=== PATIENT | female | born 1935 | race Caucasian/White ===

== ENCOUNTER 2016-06-23 11:50 | Day surgery (SDC) | payer MEDICARE, BC ==
[2016-06-23] VITALS (7 sets, daily range): BP systolic 54–115; BP diastolic 33–67; PULSE 69–83; TEMP 97.5–97.8
[~2016-06-23] VITALS: Ht 162.6 cm; Wt 63.6 kg
[~2016-06-23 11:50] MED LIST: AMITRIPTYLINE H25 M1 PO; AMITRIPTYLINE H75 M1 PO; BACLOFEN20 MG PO; CALCIUM600 MG PO; CALTRATE-600 W600 MG PO; FLONASE NASAL S16 GM NS; LEVAQUIN 5500 MG/TA1 PO; LIORESAL20 MG PO; MACRODANTIN25 MG PO; MACRODANTIN50 MG PO; MACRODANTIN50 MG/CA1 PO; MULTIPLE VITAMI1 CAP PO; NORCO 325 MG-51 TAB PO; OCUVITE; PREDNISONE20 MG PO; PREMARIN 0.60.625 M1 PO; PREMARIN 0.60.625 MG PO; SINGULAIR; SINGULAIR 110 MG/TAB PO; TUMS500 MG; VITAMIN D1000 IU PO; ZITHROMAX500 M2 PO; ZYRTEC 10MG; ZYRTEC 10MG10 MG PO
== END 2016-06-23 14:15 | disposition home or self-care (01) ==
LOC: SDCO 11:50
DX: R06.02 Shortness of breath (principal); R05 Cough; R09.89 Other specified symptoms and signs involving the circulatory and respiratory systems; G82.50 Quadriplegia, unspecified; Z87.440 Personal history of urinary (tract) infections
CPT/HCPCS: J7030

== ENCOUNTER 2016-06-28 12:28 | Day surgery (SDC) | payer MEDICARE, OTHER ==
[~2016-06-28] VITALS: Ht 162.6 cm; Wt 63.6 kg
[2016-06-28 13:07] VITALS: BP 110/72; PULSE 86; TEMP 97.8
[2016-06-28 14:15] VITALS: BP 165/77; PULSE 86; TEMP 97.6
[2016-06-28 14:30] VITALS: BP 45/72; PULSE 89
[2016-06-28 14:45] VITALS: BP 159/73; PULSE 84
[2016-06-28 15:15] VITALS: BP 167/93; PULSE 85
[2016-06-29] MEDS ORDERED: POTASSIUM IODID PO (09:50)
== END 2016-06-28 15:05 | disposition home or self-care (01) ==
LOC: SDCO 12:28
DX: R05 Cough (principal); G82.50 Quadriplegia, unspecified; Z87.440 Personal history of urinary (tract) infections
CPT/HCPCS: J2704

== ENCOUNTER 2016-06-29 06:59 | Day surgery (SDC) | payer MEDICARE, OTHER ==
[~2016-06-29] VITALS: Ht 162.6 cm; Wt 63.6 kg
[2016-06-29 07:39] VITALS: BP 157/86; PULSE 84; TEMP 97.3
[2016-06-29 08:20] VITALS: BP 121/72; PULSE 86; TEMP 98
[2016-06-29 08:35] VITALS: BP 132/70; PULSE 83
[2016-06-29 08:50] VITALS: BP 122/89; PULSE 92
[2016-06-29 09:30] VITALS: BP 138/71; PULSE 77
[2016-06-29] MEDS ORDERED: POTASSIUM IODID PO (09:50)
== END 2016-06-29 10:10 | disposition home or self-care (01) ==
LOC: SDCO 06:59
DX: R05 Cough (principal); R09.89 Other specified symptoms and signs involving the circulatory and respiratory systems; G82.50 Quadriplegia, unspecified; Z87.440 Personal history of urinary (tract) infections
CPT/HCPCS: J2704; J2920; J7030

== ENCOUNTER 2016-07-01 15:35 | Day surgery (SDC) | payer MEDICARE, BC ==
[~2016-07-01 15:35] MED LIST changes: +POTASSIUM IODID PO
[2016-07-01 16:15] VITALS: BP 142/58; PULSE 86
[2016-07-01 17:30] VITALS: BP 106/49; PULSE 64
[2016-07-01 18:00] VITALS: BP 132/73; PULSE 56; TEMP 97.4
== END 2016-07-01 18:40 | disposition home or self-care (01) ==
LOC: SDCO 15:35
DX: R06.02 Shortness of breath (principal); R05 Cough; J40 Bronchitis, not specified as acute or chronic; J98.11 Atelectasis; G82.50 Quadriplegia, unspecified
CPT/HCPCS: J2704; J7120

== ENCOUNTER 2016-07-03 09:51 | Day surgery (SDC) | payer MEDICARE, BC ==
[~2016-07-03] VITALS: Ht 162.6 cm; Wt 63.6 kg
[2016-07-03 12:08] VITALS: BP 126/67; PULSE 70; TEMP 97.4
[2016-07-03 12:30] VITALS: BP 98/57; PULSE 62
[2016-07-03 12:45] VITALS: BP 121/62; PULSE 70
[2016-07-03 13:00] VITALS: BP 118/66; PULSE 67
[2016-07-03 13:14] VITALS: BP 116/66; PULSE 58
== END 2016-07-03 13:20 | disposition home or self-care (01) ==
LOC: SDCO 09:51
DX: R06.02 Shortness of breath (principal); R05 Cough; R06.00 Dyspnea, unspecified; G82.50 Quadriplegia, unspecified
CPT/HCPCS: J2704; J7120

== ENCOUNTER 2016-08-30 13:46 | Outpatient (RCR) | payer MEDICARE, BC | END 2016-11-28 | disposition still patient (30) | LOC: WSOT | DX: Z02.89 Encounter for other administrative examinations (principal) ==

== ENCOUNTER → 2018-05-30 | Outpatient (CLI) | payer MEDICARE, BC | LOC: ZCOL.LAB 16:51 | DX: Z01.89 Encounter for other specified special examinations (principal) ==

== ENCOUNTER 2018-07-16 10:53 | Emergency (ER) | payer MEDICARE, BC ==
[2018-07-16 11:07] VITALS: TEMP 98.6
[2018-07-16 11:47] LABS: COLLECTION METHOD CATHETER
[2018-07-16 11:49] LABS: BASO # 0.1 (0.0-0.2); BASO % 0.5 % (0.0-2.0); EOS # 0.1 (0.0-0.7); GRAN # 7.2 (1.4-6.5); GRAN % 73.6 % (42.2-75.2); HEMATOCRIT 37.5 % (37.0-47.0); HEMOGLOBIN 12.1 g/dl (12.5-16.0); LYMPH # 1.7 (1.2-3.4); LYMPH % 17.5 % (20.0-51.0); MEAN CELL VOLUME 84 fl (80.0-100.0); MEAN CORPUSCULAR HEMOGLOBIN 27 pg (27.0-31.0); MEAN CORPUSCULAR HGB CONC 32 g/dl (33.0-37.0); MEAN PLATELET VOLUME 10.5 fl (7.4-10.4); MONO # 0.7 (0.1-0.6); MONO % 7.2 % (1.7-9.3); PLATELET COUNT 188 K/mm3 (130-400); RED BLOOD COUNT 4.49 M/mm3 (4.10-5.30); REDCELL DISTRIBUTION WIDTH-CV 16.4 % (11.5-14.5)
[2018-07-16 12:00] LABS: ALANINE AMINOTRANSFERASE 10 U/L (9-52); ALBUMIN 3.6 gm/dL (3.5-5.0); ALKALINE PHOSPHATASE 113 U/L (50-136); ANION GAP 8 mmol/L (7-16); AST,SGOT 21 U/L (15-37); BILIRUBIN,TOTAL 0.4 mg/dL (0.0-1.0); BLOOD UREA NITROGEN 21 mg/dL (7-17); CALCIUM 8.7 mg/dL (8.4-10.2); CARBON DIOXIDE 23 mmol/L (22-30); CHLORIDE 107 mmol/L (98-107); CREATININE, serum 0.57 mg/dL (0.52-1.25); GLUCOSE 150 mg/dL (74-106); POTASSIUM 3.9 mmol/L (3.4-5.0); SODIUM 138 mmol/L (137-145); TOTAL PROTEIN 7.6 gm/dL (6.4-8.2)
[2018-07-16 12:00] LABS: MUCOUS Present /lpf; PH 7 (5-8); SQUAMOUS EPITHELIAL 0-2 /hpf; URINE APPEARANCE Hazy; URINE BACTERIA Rare /hpf; URINE BILIRUBIN Negative (NEGATIVE); URINE BLOOD 1+ (NEGATIVE); URINE COLOR Yellow; URINE GLUCOSE Negative (NEGATIVE); URINE KETONE 1+ (NEGATIVE); URINE LEUKOCYTE ESTERASE 2+ (NEGATIVE); URINE NITRATE Positive (NEGATIVE); URINE PROTEIN(semi-quant) Negative (NEGATIVE); URINE UROBILINOGEN Negative (NEGATIVE)
[2018-07-16 12:03] LABS: ACETAMINOPHEN < 10 ug/mL (10-30); ALCOHOL(ethanol),MEDICAL < 10 mg/dL; SALICYLATE < 1.0 mg/dL
[2018-07-16 12:05] LABS: TRICYCLIC ANTIDEPRESS URINE POSITIVE
[2018-07-16] MEDS ORDERED: OMNICEF 300MG300 MG PO (12:24)
[2018-07-16 13:55] VITALS: BP 99/70; PULSE 84
== END 2018-07-16 14:00 | disposition home or self-care (01) ==
LOC: COL.ER 10:53
PROVIDERS: Emergency Medicine
DX: N39.0 Urinary tract infection, site not specified (principal); J32.9 Chronic sinusitis, unspecified; H70.90 Unspecified mastoiditis, unspecified ear; Z90.710 Acquired absence of both cervix and uterus; Z79.51 Long term (current) use of inhaled steroids
CPT/HCPCS: A4216; J0696; J7030

== ENCOUNTER 2019-05-07 08:35 | Emergency (ER) | payer MEDICARE, BC ==
[~2019-05-07] VITALS: Ht 162.6 cm; Wt 60.0 kg
[~2019-05-07 08:35] MED LIST changes: +OMNICEF 300MG300 MG PO
[2019-05-07 09:47] LABS: COLLECTION METHOD CATHETER
[2019-05-07 10:08] LABS: PH 7 (5-8); SQUAMOUS EPITHELIAL None Seen /hpf; URINE APPEARANCE Cloudy; URINE BACTERIA Many /hpf; URINE BILIRUBIN Negative (NEGATIVE); URINE BLOOD 3+ (NEGATIVE); URINE COLOR Amber; URINE GLUCOSE Negative (NEGATIVE); URINE KETONE Negative (NEGATIVE); URINE LEUKOCYTE ESTERASE 2+ (NEGATIVE); URINE NITRATE Positive (NEGATIVE); URINE PROTEIN(semi-quant) 2+ (NEGATIVE); URINE RBC >50 /hpf; URINE UROBILINOGEN >=4.0 mg/dL (NEGATIVE)
[2019-05-07 10:11] LABS: BASO # 0.1 (0.0-0.2); BASO % 0.7 % (0.0-2.0); EOS # 0.3 (0.0-0.7); EOS % 4.3 % (0-4.0); GRAN # 4.7 (1.4-6.5); GRAN % 64.8 % (42.2-75.2); HEMOGLOBIN 11.4 g/dl (12.5-16.0); LYMPH # 1.5 (1.2-3.4); LYMPH % 20.7 % (20.0-51.0); MEAN CELL VOLUME 80 fl (80.0-100.0); MEAN CORPUSCULAR HEMOGLOBIN 25 pg (27.0-31.0); MEAN CORPUSCULAR HGB CONC 32 g/dl (33.0-37.0); MEAN PLATELET VOLUME 10.8 fl (7.4-10.4); MONO # 0.6 (0.1-0.6); MONO % 8.9 % (1.7-9.3); PLATELET COUNT 179 K/mm3 (130-400); RED BLOOD COUNT 4.48 M/mm3 (4.10-5.30); REDCELL DISTRIBUTION WIDTH-CV 18.5 % (11.5-14.5)
[2019-05-07 10:22] LABS: ALBUMIN 3.7 gm/dL (3.5-5.0); BILIRUBIN,TOTAL 0.5 mg/dL (0.0-1.0); CALCIUM 8.7 mg/dL (8.4-10.2); CREATININE, serum 0.49 (0.52-1.25); POTASSIUM 4.2 mmol/L (3.4-5.0); TOTAL PROTEIN 7.9 gm/dL (6.4-8.2)
[2019-05-07 10:33] LABS: TROPONIN-I 0.017 ng/mL (0.000-0.035)
[2019-05-07] MEDS ORDERED: CEPHALEXIN500 M1 PO (11:08)
[2019-05-07] MEDS ORDERED: OMNICEF 300MG300 MG PO (11:55)
[2019-05-07] MEDS ORDERED: LASIX 20MG TABL20 MG PO (13:18)
[2019-05-07 13:40] VITALS: BP 120/59; PULSE 88; TEMP 98.4
== END 2019-05-07 13:45 | disposition home or self-care (01) ==
LOC: COL.ER 08:35
PROVIDERS: Nurse Practitioner
DX: N39.0 Urinary tract infection, site not specified (principal); Z90.710 Acquired absence of both cervix and uterus; Z79.51 Long term (current) use of inhaled steroids
CPT/HCPCS: A4216; J0696; J7030

== ENCOUNTER 2019-05-14 15:23 | Emergency (ER) | payer MEDICARE, BC ==
[~2019-05-14] VITALS: Ht 162.6 cm; Wt 61.4 kg
[~2019-05-14 15:23] MED LIST changes: +CEPHALEXIN500 M1 PO; +LASIX 20MG TABL20 MG PO
[2019-05-14 15:29] VITALS: TEMP 97
[2019-05-14 16:36] LABS: COLLECTION METHOD CATHETER
[2019-05-14 16:40] LABS: BASO # 0.1 (0.0-0.2); EOS # 0.3 (0.0-0.7); EOS % 4.2 % (0-4.0); GRAN # 3.9 (1.4-6.5); GRAN % 53.6 % (42.2-75.2); HEMATOCRIT 37.2 % (37.0-47.0); HEMOGLOBIN 11.7 g/dl (12.5-16.0); LYMPH # 2.5 (1.2-3.4); LYMPH % 35.1 % (20.0-51.0); MEAN CELL VOLUME 81 fl (80.0-100.0); MEAN CORPUSCULAR HEMOGLOBIN 26 pg (27.0-31.0); MEAN CORPUSCULAR HGB CONC 32 g/dl (33.0-37.0); MEAN PLATELET VOLUME 10.8 fl (7.4-10.4); MONO # 0.4 (0.1-0.6); PLATELET COUNT 254 K/mm3 (130-400); RED BLOOD COUNT 4.57 M/mm3 (4.10-5.30); REDCELL DISTRIBUTION WIDTH-CV 18.5 % (11.5-14.5)
[2019-05-14 16:46] LABS: MUCOUS Present /lpf; PH 6 (5-8); SQUAMOUS EPITHELIAL 0-2 /hpf; URINE APPEARANCE Hazy; URINE BACTERIA Rare /hpf; URINE BILIRUBIN Negative (NEGATIVE); URINE BLOOD Negative (NEGATIVE); URINE COLOR Yellow; URINE GLUCOSE Negative (NEGATIVE); URINE KETONE Negative (NEGATIVE); URINE LEUKOCYTE ESTERASE Trace (NEGATIVE); URINE NITRATE Positive (NEGATIVE); URINE PROTEIN(semi-quant) Negative (NEGATIVE); URINE RBC 0-2 /hpf
[2019-05-14 16:55] LABS: ALBUMIN 3.8 gm/dL (3.5-5.0); BILIRUBIN,TOTAL 0.4 mg/dL (0.0-1.0); C-REACTIVE PROTEIN 2.1 mg/dL (0.0-0.9); CALCIUM 9.1 mg/dL (8.4-10.2); CREATININE, serum 0.62 (0.52-1.25); POTASSIUM 4.3 mmol/L (3.4-5.0)
[2019-05-14 17:50] VITALS: BP 128/74; PULSE 67
== END 2019-05-14 18:10 | disposition home or self-care (01) ==
LOC: COL.ER 15:23
PROVIDERS: Family Medicine
DX: N39.0 Urinary tract infection, site not specified (principal); Z79.51 Long term (current) use of inhaled steroids
CPT/HCPCS: J7030

== ENCOUNTER 2020-03-02 13:36 | Inpatient (IN) | payer MEDICARE, BC ==
[~2020-03-02] VITALS: Ht 162.6 cm; Wt 56.8 kg
[2020-03-02 14:50] LABS: COLLECTION METHOD CATHETER
[2020-03-02 14:56] LABS: HEMOGLOBIN 11.2 g/dl (12.5-16.0); MEAN CELL VOLUME 86 fl (80.0-100.0); MEAN CORPUSCULAR HEMOGLOBIN 27 pg (27.0-31.0); MEAN CORPUSCULAR HGB CONC 32 g/dl (33.0-37.0); PLATELET COUNT 152 K/mm3 (130-400); REDCELL DISTRIBUTION WIDTH-CV 16.5 % (11.5-14.5)
[2020-03-02 15:00] LABS: HEMATOCRIT 35.1 % (37.0-47.0)
[2020-03-02 15:07] LABS: MUCOUS Present /lpf; PH 8 (5-8); URINE APPEARANCE Turbid; URINE BACTERIA None Seen /hpf; URINE BILIRUBIN Negative (NEGATIVE); URINE BLOOD Negative (NEGATIVE); URINE COLOR Amber; URINE GLUCOSE Negative (NEGATIVE); URINE KETONE Negative (NEGATIVE); URINE LEUKOCYTE ESTERASE 2+ (NEGATIVE); URINE NITRATE Negative (NEGATIVE); URINE PROTEIN(semi-quant) 2+ (NEGATIVE); URINE UROBILINOGEN Negative (NEGATIVE)
[2020-03-02 15:08] LABS: ALANINE AMINOTRANSFERASE 32 U/L (4-34); ALBUMIN 3.7 gm/dL (3.5-5.0); ALKALINE PHOSPHATASE 257 U/L (50-136); ANION GAP 10 mmol/L (7-16); AST,SGOT 69 U/L (15-37); BILIRUBIN,TOTAL 1.2 mg/dL (0.0-1.0); BLOOD UREA NITROGEN 31 mg/dL (7-17); CALCIUM 8.9 mg/dL (8.4-10.2); CARBON DIOXIDE 23 mmol/L (22-30); CHLORIDE 102 mmol/L (98-107); GLUCOSE 160 mg/dL (74-106); MAGNESIUM 1.8 mg/dL (1.6-2.3); POTASSIUM 4.1 mmol/L (3.4-5.0); SODIUM 134 mmol/L (137-145); TOTAL PROTEIN 7.9 gm/dL (6.4-8.2)
[2020-03-02 15:20] LABS: C-REACTIVE PROTEIN 20.5 mg/dL (0.0-0.9); TROPONIN-I < 0.012 ng/mL (0.000-0.035)
[2020-03-02 15:35] LABS: ANISOCYTOSIS 1+; BAND 31 % (0-10); LYMPHOCYTE 2 % (20.0-51.0); MICROCYTOSIS 1+; NEUTROPHILS 66 % (42.0-75.2); PLATELET ESTIMATE NORMAL (NORMAL); TOXIC GRANULATION PRESENT
[2020-03-02 16:41] LABS: ERYTHROCYTE SEDIMENTATION RATE 92 mm/hr (0-30)
[2020-03-02 19:43] VITALS: BP 142/69; PULSE 80; TEMP 98.6
--- NOTE | 2020-03-02 20:00 | NUR ---
At time of assessment, patient is alert and oriented. 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 She is unable to feed herself and is assisted with dinner at this time. All extremities are puffy. Lung sounds are clear over fine crackles, HR normal/regular. Assessment B and med rec complete at this time. Patient states she has stopped taking all prescription medications and only takes OTC vitamin D, magnesium and Flonase. A stage 3 pressure ulcer is observed on patients sacruum; Old dressing from home is removed and a new wet-to-dry dressing is applied after wound is cleansed with NS. Two scabbed over ulcers, one on each great toe, are noted, in addition to a stage 2 pressure ulcer on the patient's left heel. Patient has indwelling suprapubic ash in; leg bag from home is emptied and replaced with a larger draining reservoir from hospital. Urine is malodorous and dark yellow. Patient is afebrile. Will continue to monitor.
[2020-03-02] MEDS ORDERED: MAGNESIUM ELEME30 MG (22:09)
[2020-03-02 23:32] VITALS: BP 97/50; PULSE 72; TEMP 98.1
[2020-03-03] VITALS (7 sets, daily range): BP systolic 75–158; BP diastolic 39–68; PULSE 70–93; TEMP 97.3–98.2
[2020-03-03 09:02] LABS: HEMATOCRIT 30.5 % (37.0-47.0); HEMOGLOBIN 9.6 g/dl (12.5-16.0); MEAN CELL VOLUME 87 fl (80.0-100.0); MEAN CORPUSCULAR HEMOGLOBIN 27 pg (27.0-31.0); MEAN CORPUSCULAR HGB CONC 32 g/dl (33.0-37.0); MEAN PLATELET VOLUME 12.1 fl (7.4-10.4); PLATELET COUNT 130 K/mm3 (130-400); RED BLOOD COUNT 3.51 M/mm3 (4.10-5.30); REDCELL DISTRIBUTION WIDTH-CV 16.9 % (11.5-14.5)
[2020-03-03 09:26] LABS: CALCIUM 7.5 mg/dL (8.4-10.2); CREATININE, serum 0.59 (0.52-1.25); MAGNESIUM 1.7 mg/dL (1.6-2.3); POTASSIUM 3.6 mmol/L (3.4-5.0)
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
--- NOTE | 2020-03-03 10:51 | NUR ---
PATIENT SHIFT ASSESSMENT COMPLETED AT THIS TIME. BED BATH GIVEN WITH THE ASSISTANCE OF THE SOFTWARE IMPLEMENTATION PROJECT MANAGER. SUPRAPUBIC CATHETER DRAINING TO A LI BAG. PATIENT REPOSITIONED IN BED WITH PILLOWS AND TOUCH PAD CALL LIGHT. PRESENT BRIEFLY IN THE ROOM THIS MORNING. PATIENT DENIES ANY OTHER NEEDS AT THIS TIME.
[2020-03-03 11:02] LABS: BAND 35 % (0-10); EOSINOPHIL 2 % (0-4); LYMPHOCYTE 11 % (20.0-51.0); NEUTROPHILS 51 % (42.0-75.2); PLATELET ESTIMATE NORMAL (NORMAL)
--- NOTE | 2020-03-03 14:31 | NUR ---
CHARLOTTE NAJERA CALLED AND NOTIFIED OF POSITIVE BLOOD CULTURE RESULTS. NO ORDERS AT THIS TIME.
--- NOTE | 2020-03-03 17:00 | NUR ---
COCCYX DRESSING CHANGE DISCUSSED WITH CHARLOTTE NAJERA AND CHARGE NURSE MARIA D GARCIA. PATIENT AND HAD REFUSED WOUND CARE CONSULTATION WITH THE HOSPITAL HERE AND WOULD LIKE TO CONTINUE WITH THEIR WOUND CARE ROUTINE PER [facility]. THIS NURSE ATTEMPTED TO CONTACT THE IN REGARDS TO THEIR HOME WOUND CARE ROUTINE. ALL CONTACT PHONE NUMBERS IN THE PATIENTS CHART HAVE BEEN DISCONNECTED AND THIS NURSE WAS UNABLE TO GET AHOLD OF THE THIS AFTERNOON. WET TO DRY DRESSING TO THE COCCYX CURRENTLY IN PLACE. WILL HAVE NURSING STAFF REPLACE IF DRAINAGE NOTED. OTHERWISE WILL GET WOUND CARE ORDERS TOMORROW AND RESUME DRESSING CHANGES PER THEIR ORDERS TOMORROW. THIS NURSE DISCUSSED WITH PATIENT. PATIENT IS OKAY WITH THIS PLAN. PATIENT REPOSITIONED IN BED. SUPRAPUBIC LI CATHETER DRAINING CLEAR YELLOW URINE TO LI BAG. TOUCH PAD CALL LIGHT WITHIN REACH.
--- NOTE | 2020-03-03 20:00 | NUR ---
Report received, assumed care for security shift manager. Assessment complete. A&Ox3-drowsy. Denies pain/nausea/shortness of breath. VS remain stable. Suprapubic cath draining yellow cloudy malodorous urine. NS@75mls/hr to right hand IV. Stage III pressure ulcer to coccyx-dressing intact. Left heel scabbed healing pressure ulcer-heel protectors on-elevated on pillows. Bilat great toe scabbed healing pressure ulcer. Plan of care discussed for this shift to include q2h turn schedule/meds/calling for needs. Verbalizes understanding/denies questions/concerns. Call light in reach. Will monitor.
--- NOTE | 2020-03-04 04:07 | NUR ---
Called slightly confused asking for this nurse to call doctor to get medications ordered in "shot form." Discussed no meds were due at this time. States she cant swallow her pills even when they are crushed in apple sauce. Will pass on to day shift nurse to be addressed.
[2020-03-04 04:31] VITALS: BP 159/74; PULSE 92; TEMP 97.5
--- NOTE | 2020-03-04 07:30 | NUR ---
Patient resting in bedside recliner eating breakfast at this time. Patient is alert and oriented, answers questions appropriately. Patient states he is feeling well this morning, is breathing easier. Patient reports that his CPAP tubing has a tear in it and he had to use a hospital machine last night, which he found very uncomfortable and had trouble sleeping. Called patient's about CPAP tubing and she states she will try to get replacement tubing for it before she comes to visit today. Patient denies further needs, call light within reach.
[2020-03-04 08:46] LABS: BASO # 0.1 (0.0-0.2); BASO % 0.4 % (0.0-2.0); EOS # 0.5 (0.0-0.7); EOS % 3.6 % (0-4.0); GRAN # 10.9 (1.4-6.5); GRAN % 81.9 % (42.2-75.2); LYMPH # 1.2 (1.2-3.4); LYMPH % 9.3 % (20.0-51.0); MEAN CELL VOLUME 86 fl (80.0-100.0); MEAN CORPUSCULAR HGB CONC 32 g/dl (33.0-37.0); MEAN PLATELET VOLUME 12.4 fl (7.4-10.4); MONO # 0.5 (0.1-0.6); PLATELET COUNT 125 K/mm3 (130-400); RED BLOOD COUNT 3.29 M/mm3 (4.10-5.30)
[2020-03-04 08:47] VITALS: BP 118/65; PULSE 96; TEMP 98.2
[2020-03-04 08:48] LABS: HEMATOCRIT 28.4 % (37.0-47.0); HEMOGLOBIN 9.2 g/dl (12.5-16.0); MEAN CORPUSCULAR HEMOGLOBIN 28 pg (27.0-31.0)
[2020-03-04 08:51] LABS: ALBUMIN 2.7 gm/dL (3.5-5.0); BILIRUBIN,TOTAL 0.4 mg/dL (0.0-1.0); CALCIUM 7.5 mg/dL (8.4-10.2); CREATININE, serum 0.58 (0.52-1.25); POTASSIUM 3.3 mmol/L (3.4-5.0); TOTAL PROTEIN 6.3 gm/dL (6.4-8.2)
--- NOTE | 2020-03-04 09:53 | NUR ---
Patient resting in bed at this time. Patient is alert and oriented, answers questions appropriately. Patient reports that she is feeling well today, denies pain or compaints. Discussed with patient the need to get a different phone number for [facility] wound care so we can get instructions for her dressing changes. She states that they can be hard to get in touch with, but her may have a different phone number, she states that if you leave a message they ususally call back. Ensured patient had soft touch call light in good position so it could be used if she needs anything. Patient denies current needs.
[2020-03-04 12:14] VITALS: BP 150/87; PULSE 93; TEMP 98.4
[2020-03-04 16:50] VITALS: BP 135/93; PULSE 80; TEMP 97.7
--- NOTE | 2020-03-04 18:30 | NUR ---
Took over this patient around 1300. Patient has been resting comfortably this afternoon. She had one large bowel movement before supper. The dressing to her coccyx was soiled. Stool got into the wound. Rinsed wound with saline and packed it to keep stool out. Her stools are loose/liquid. Patient had some aching after the repositioning to get her cleaned up. Eubanks secured to leg, urine yellow and hazy. Tylenol given for aching. No other changes at this time. Soft touch call light within reach.
[2020-03-04 19:23] VITALS: BP 155/78; PULSE 83; TEMP 98
--- NOTE | 2020-03-04 22:00 | NUR ---
Pt is currently lying in bed. This time when pt was repostioned pt dressing was changed on her bottom. Pt did have a large bm. Pt was cleaned using the normal saline flushes. Pt was patted dry. The dressing that was applied was a wet to dry dressing. There are 2 4x4's and a foam dressing applied at this time. Pt has her push button call light within reach and she is currently on her right side and he bed is in lowest positon. Pt has no complaints of pain at this time.
[2020-03-04 23:51] VITALS: BP 155/67; PULSE 83; TEMP 98.5
[2020-03-05 03:40] VITALS: BP 160/80; PULSE 80; TEMP 98.7
--- NOTE | 2020-03-05 06:39 | NUR ---
Pt resting in bed and she was just cleaned. Pt had a small bowel movement. Pt was cleaned and she was repostioned on her right side. Pt stated that it was difficult for her to breathe while on her left side. Pt has her push button call light within reach and her bed is in lowest position.
--- NOTE | 2020-03-05 07:06 | NUR ---
Reported off to MARIA D Cedeño. Pt is currently lying in bed sleeping. Pt has her call light within reach.
[2020-03-05 07:22] LABS: BASO # 0.1 (0.0-0.2); BASO % 0.4 % (0.0-2.0); EOS # 0.6 (0.0-0.7); EOS % 4.8 % (0-4.0); GRAN # 9.4 (1.4-6.5); GRAN % 77.5 % (42.2-75.2); LYMPH # 1.6 (1.2-3.4); LYMPH % 13.2 % (20.0-51.0); MEAN CELL VOLUME 86 fl (80.0-100.0); MEAN CORPUSCULAR HGB CONC 32 g/dl (33.0-37.0); MEAN PLATELET VOLUME 11.7 fl (7.4-10.4); MONO # 0.4 (0.1-0.6); MONO % 3.6 % (1.7-9.3); PLATELET COUNT 160 K/mm3 (130-400); RED BLOOD COUNT 3.23 M/mm3 (4.10-5.30)
[2020-03-05 07:23] LABS: HEMATOCRIT 27.9 % (37.0-47.0); HEMOGLOBIN 8.8 g/dl (12.5-16.0); MEAN CORPUSCULAR HEMOGLOBIN 27 pg (27.0-31.0)
[2020-03-05 07:31] LABS: CALCIUM 8.3 mg/dL (8.4-10.2); CREATININE, serum 0.42 (0.52-1.25); MAGNESIUM 1.8 mg/dL (1.6-2.3)
[2020-03-05 07:42] VITALS: BP 151/66; PULSE 82; TEMP 98.3
[2020-03-05 12:53] VITALS: BP 148/65; PULSE 86; TEMP 98.2
[2020-03-05 16:05] VITALS: BP 152/68; PULSE 82; TEMP 97.7
--- NOTE | 2020-03-05 18:00 | NUR ---
Patient has been doing well today. Air mattress placed to bed. Student changed her dressing to her coccyx this morning. It continues to be clean and dry. Tylenol given twice this shift for left arm pain. No other changes at this time. Call light within reach.
--- NOTE | 2020-03-05 19:00 | NUR ---
Received report from MARIA D Cedeño. Pt is currently sitting up in bed. Pt has no complaints at this time. Pt did request to be repositioned and she wanted a bed bath before she goes to sleep for the night. Pt was informed that we would make sure she gets a bath and we did reposition her at this time. She has her easy touch call light within reach of her face.
[2020-03-05 19:23] VITALS: BP 174/89; PULSE 81; TEMP 98.3
[2020-03-05 21:58] VITALS: BP 158/78
--- NOTE | 2020-03-05 22:30 | NUR ---
Pt was assisted with a bed bath when she got her night medications. Pt was also repositioned. Pt dressing was not changed at this time. Pt was also rubbbed down with lotion. Pt legs were both elevated with pillows and booties were put on both feet. Pt did state that she was having a hard time brething. We tried to reposition the pt at this time. Pt stated she still feels this way. Allision the hosptialist was contacted at this time and I also explained to her how the pt arms and hands were swollen. Philomena decided to discontinue the pt IV fluids and she ordered 2mg of Lasix at this time. Pt was informed of all the changes. Pt nilsa had 175 empitied before the Lasix was given. Pt also requested something to help her sleep and this was also given at this time crushed and in applesauce. Pt is comfortable on her side and her easy touch call light is within reach.
[2020-03-06 00:26] VITALS: BP 165/96; PULSE 77; TEMP 98.4
[2020-03-06 04:19] VITALS: BP 185/82; PULSE 77; TEMP 98
[2020-03-06 05:00] VITALS: BP 180/74
[2020-03-06 05:36] LABS: BASO # 0.1 (0.0-0.2); BASO % 0.6 % (0.0-2.0); EOS # 0.5 (0.0-0.7); EOS % 4.5 % (0-4.0); GRAN # 8.3 (1.4-6.5); GRAN % 73.7 % (42.2-75.2); HEMOGLOBIN 10.4 g/dl (12.5-16.0); LYMPH # 1.8 (1.2-3.4); LYMPH % 16.1 % (20.0-51.0); MEAN CELL VOLUME 84 fl (80.0-100.0); MEAN CORPUSCULAR HEMOGLOBIN 28 pg (27.0-31.0); MEAN CORPUSCULAR HGB CONC 33 g/dl (33.0-37.0); MEAN PLATELET VOLUME 11.2 fl (7.4-10.4); MONO # 0.4 (0.1-0.6); MONO % 3.8 % (1.7-9.3); PLATELET COUNT 190 K/mm3 (130-400); RED BLOOD COUNT 3.73 M/mm3 (4.10-5.30); REDCELL DISTRIBUTION WIDTH-CV 16.6 % (11.5-14.5)
[2020-03-06 05:38] LABS: HEMATOCRIT 31.3 % (37.0-47.0)
[2020-03-06 05:54] LABS: CALCIUM 8.6 mg/dL (8.4-10.2); CREATININE, serum 0.45 (0.52-1.25); POTASSIUM 3.9 mmol/L (3.4-5.0)
[2020-03-06 06:28] VITALS: BP 177/81
[2020-03-06 07:14] VITALS: BP 157/79; PULSE 83
--- NOTE | 2020-03-06 07:15 | NUR ---
Pt blood pressure was elevated this morning. This was after moving pt around and changing her. I waited and rechecked blood pressure the reading was still elevated. The last reading after PRN blood pressure reading was recoreded was 157/79. Pt currently resting in bed and has her call light within reach.
[2020-03-06 08:38] VITALS: BP 133/72; PULSE 73; TEMP 98
--- NOTE | 2020-03-06 10:00 | NUR ---
Patient alert and oriented, answers questions appropriately. See assessment. Suprapubic catheter patent and draining adequate amounts of clear josé manuel urine. Heels elevated off bed, heel protectors and SCDs in place. Dressing changed to coccyx wound, wet to dry place. No c/o at this time.
[2020-03-06] MEDS ORDERED: CLEOCIN HC150 MG/CAP PO (10:50)
--- NOTE | 2020-03-06 13:35 | NUR ---
Discharge instructions reviewed with patient and spouse, verbalized understanding. Discharged via personal wheelchair to auto/home with spouse at 1330.
== END 2020-03-06 13:30 | disposition home or self-care (01) | DRG 871 ==
LOC: COL.ER 13:36 → SURG 15:53
PROVIDERS: Emergency Medicine; Hospitalist; Physician Assistant; ADMIT Internal Medicine
DX: A40.8 Other streptococcal sepsis (principal); L89.154 Pressure ulcer of sacral region, stage 4; J18.9 Pneumonia, unspecified organism; G82.50 Quadriplegia, unspecified; M46.28 Osteomyelitis of vertebra, sacral and sacrococcygeal region; N39.0 Urinary tract infection, site not specified; E87.6 Hypokalemia; Z88.2 Allergy status to sulfonamides; Z88.0 Allergy status to penicillin
CPT/HCPCS: 99222-AI; 99232-AI; 99233-AI; 99239; J0696; J1650; J1940; J7030

== ENCOUNTER 2020-07-17 13:14 | Inpatient (IN) | payer MEDICARE, BC ==
[~2020-07-17] VITALS: Ht 162.6 cm; Wt 59.1 kg
[~2020-07-17 13:14] MED LIST changes: +CLEOCIN HC150 MG/CAP PO; +MAGNESIUM ELEME30 MG
[2020-07-17 14:51] LABS: HEMOGLOBIN 11.3 g/dl (12.5-16.0); MEAN CELL VOLUME 88 fl (80.0-100.0); MEAN CORPUSCULAR HEMOGLOBIN 28 pg (27.0-31.0); MEAN CORPUSCULAR HGB CONC 32 g/dl (33.0-37.0); MEAN PLATELET VOLUME 11.5 fl (7.4-10.4); PLATELET COUNT 178 K/mm3 (130-400); RED BLOOD COUNT 4.05 M/mm3 (4.10-5.30); REDCELL DISTRIBUTION WIDTH-CV 18.6 % (11.5-14.5)
[2020-07-17 14:55] LABS: HEMATOCRIT 35.7 % (37.0-47.0)
[2020-07-17 14:57] LABS: MUCOUS Present /lpf; PH 6 (5-8); SQUAMOUS EPITHELIAL None Seen /hpf; URINE APPEARANCE Turbid; URINE BACTERIA Many /hpf; URINE BILIRUBIN Positive (NEGATIVE); URINE BLOOD Negative (NEGATIVE); URINE COLOR Amber; URINE GLUCOSE Negative (NEGATIVE); URINE KETONE Trace (NEGATIVE); URINE LEUKOCYTE ESTERASE 2+ (NEGATIVE); URINE NITRATE Negative (NEGATIVE); URINE PROTEIN(semi-quant) 3+ (NEGATIVE); URINE RBC None Seen /hpf; URINE UROBILINOGEN >=4.0 mg/dL (NEGATIVE)
[2020-07-17 15:01] LABS: ALBUMIN 3.7 gm/dL (3.5-5.0); BILIRUBIN,TOTAL 0.6 mg/dL (0.0-1.0); CALCIUM 9.2 mg/dL (8.4-10.2); CREATININE, serum 0.66 (0.52-1.25); POTASSIUM 4.3 mmol/L (3.4-5.0); TOTAL PROTEIN 7.7 gm/dL (6.4-8.2)
[2020-07-17 15:10] LABS: ANISOCYTOSIS 2+; LYMPHOCYTE 3 % (20.0-51.0); NEUTROPHILS 92 % (42.0-75.2); PLATELET ESTIMATE NORMAL (NORMAL)
[2020-07-17 15:28] LABS: COLLECTION METHOD CATHETER
--- NOTE | 2020-07-17 18:10 | NUR ---
PT ARRIVED TO FLOOR, SETTLED INTO BED, DINNER ORDERED FOR PT, PT DENIES ANY HOME MEDICATIONS, ASSESSMENT PERFORMED,
--- NOTE | 2020-07-17 18:26 | NUR ---
UNABLE TO OBTAIN A TEMP ON PT, PT DOES FEEL COOL, CALLED HOUSE TO GET RECTAL THERMOMETER.
[2020-07-17 18:30] VITALS: PULSE 74
--- NOTE | 2020-07-17 18:35 | NUR ---
TEMPORAL TEMPT OBTAINED, MANUAL PRESSURE TAKEN AND GOT 146/82
[2020-07-17 19:17] VITALS: BP 100/48; PULSE 66; TEMP 97.4
--- NOTE | 2020-07-17 19:49 | NUR ---
CALLED FOR TELE READING IS POOR TO CHECK LEADS
--- NOTE | 2020-07-17 20:00 | NUR ---
Report received, assumed care for collection clerk. Assessment complete. A&Ox3. Denies pain/nausea/shortness of breath. VS are stable-hypotensive. Plan of care discussed for this shift to include HS meds/starting antibiotics/IV fluids. Verbalizes understanding/denies questions concerns. IV to right wrist leaking-unable to flush. DCd at this time cath intact. Attempt to restart x2 by this nurse. Notified private household worker of need for IV access-will come to attempt. Suprapubic cath draining josé manuel foul smelling cloudy urine. Discussed removing pants and changing cath bag from leg bag but refused at this time. Noted to have a stage 4 pressure ulcer to sacrum-foam dressing present. O2@2L/NC with adequate Saturation. Denies questions/concerns. Soft touch call light set up due to unable to use regular one. Instructed on use. Will continue to monitor.
[2020-07-18 00:03] VITALS: BP 103/49; PULSE 72; TEMP 97.4
[2020-07-18 05:00] VITALS: BP 101/48; PULSE 69; TEMP 97.2
--- NOTE | 2020-07-18 05:59 | NUR ---
Has had minimal out of her suprapubic cath this shift. Total of 250 in output with very strong odor. Refused to have pants removed so currently still in slacks with leg bag. States she doesnt want her leg bag changed either. VS remained stable. Denies pain/nausea/shortness of breath. Repositioned frequently with pillow support. Denies current needs. Call light in reach. Will monitor.
[2020-07-18 06:50] LABS: BASO % 0.4 % (0.0-2.0); EOS # 0.2 (0.0-0.7); EOS % 1.6 % (0-4.0); GRAN % 84.9 % (42.2-75.2); LYMPH # 1.1 (1.2-3.4); LYMPH % 10.3 % (20.0-51.0); MEAN CELL VOLUME 91 fl (80.0-100.0); MEAN CORPUSCULAR HGB CONC 31 g/dl (33.0-37.0); MEAN PLATELET VOLUME 12.3 fl (7.4-10.4); MONO # 0.3 (0.1-0.6); MONO % 2.6 % (1.7-9.3); PLATELET COUNT 154 K/mm3 (130-400); RED BLOOD COUNT 3.27 M/mm3 (4.10-5.30); REDCELL DISTRIBUTION WIDTH-CV 18.8 % (11.5-14.5)
[2020-07-18 06:56] LABS: HEMOGLOBIN 9.2 g/dl (12.5-16.0); MEAN CORPUSCULAR HEMOGLOBIN 28 pg (27.0-31.0)
[2020-07-18 06:57] LABS: HEMATOCRIT 29.9 % (37.0-47.0)
[2020-07-18 07:01] LABS: CALCIUM 8.5 mg/dL (8.4-10.2); CREATININE, serum 0.59 (0.52-1.25); POTASSIUM 4.2 mmol/L (3.4-5.0)
[2020-07-18 07:45] VITALS: BP 136/72; PULSE 72; TEMP 97.4
--- NOTE | 2020-07-18 09:00 | NUR ---
Assessment completed, alert/oriented, vital signs stable, denies pain/ discomfort, patient is quadrapalegic and we are doing frequent position changes when the patient allows us, I have changed dressing to the unstageable sacral wound, hospitalist will change out her suprapubic catheter, heart RRR/ SR on tele, lungs CTA/ diminished, I have spoke with on the phone and discussed plan of care
--- NOTE | 2020-07-18 11:51 | NUR ---
SW met with patient to complete intake. Patient provides that she lives in [facility] with her [phone]. When calling this number it states that number is out of service. SW called to verfiy information provided by patient due to patient requesting to call to verify number. SW also called number [phone] and number was constantly busy. Patient provides that she does not utilize any DME at this time, and states that she receives assistance from [employer] Araiza from [facility] every morning with showering and things that she may need assistance with. Patient states her PCP is Dr. Quevedo, she obtains her medications from [facility], and is able to afford her medications at this time. Patient states that her plan is to return home up on DC and will not need any assistance upon DC. SW will continue to follow.
[2020-07-18 11:56] VITALS: BP 167/112; PULSE 76; TEMP 97.5
[2020-07-18 15:56] VITALS: BP 155/76; PULSE 69; TEMP 98
--- NOTE | 2020-07-18 16:29 | NUR ---
patient doing fair, vitals remain stable, Suprapubic cath was replaced per provider, dressing to sacral wound changed as well / aquacell Ag packing covered with Allevyn foam dressing, we are doing q1-2 hr position changes as the patient allows
[2020-07-18 20:14] VITALS: BP 145/65; PULSE 75; TEMP 97.2
--- NOTE | 2020-07-18 21:18 | NUR ---
Patient sitting up in bed upon enter the room. Patient alert and oriented. Patient c/o of neck pain and requested massage to her neck. Gentle massage provided to her neck. PRN Tylenol given for neck pain. All sheduled meds given at this time per AUG. Suprapubic catheter site C/D/I and draining clear yellow urine. Call light within reach. Patient denies further needs at this time.
[2020-07-19 00:03] VITALS: BP 150/74; PULSE 80; TEMP 97
[2020-07-19 04:11] VITALS: BP 137/76; PULSE 92; TEMP 97.2
--- NOTE | 2020-07-19 05:14 | NUR ---
Patient c/o some minor pain to her bilateral arms and hands. Massaged both arms gently per patient request. Applied hand stabilizer to both hands per request. Warm blanket provided. Repositioned patient frequently. Due to patient unable to use call light, checked on patient hourly to make sure her needs are met. No acute distress noted at this time. Will give report to day shift nurse.
[2020-07-19 06:52] LABS: CALCIUM 8.8 mg/dL (8.4-10.2); CREATININE, serum 0.55 (0.52-1.25); POTASSIUM 4.3 mmol/L (3.4-5.0)
[2020-07-19 07:51] VITALS: BP 146/73; PULSE 97; TEMP 98.2
[2020-07-19 08:12] LABS: BASO # 0.1 (0.0-0.2); BASO % 0.6 % (0.0-2.0); EOS # 0.2 (0.0-0.7); EOS % 2.6 % (0-4.0); GRAN # 7.5 (1.4-6.5); GRAN % 82.5 % (42.2-75.2); LYMPH # 0.9 (1.2-3.4); LYMPH % 9.7 % (20.0-51.0); MEAN CELL VOLUME 91 fl (80.0-100.0); MEAN CORPUSCULAR HGB CONC 31 g/dl (33.0-37.0); MEAN PLATELET VOLUME 12.4 fl (7.4-10.4); MONO # 0.4 (0.1-0.6); MONO % 4.2 % (1.7-9.3); PLATELET COUNT 155 K/mm3 (130-400); RED BLOOD COUNT 3.47 M/mm3 (4.10-5.30); REDCELL DISTRIBUTION WIDTH-CV 18.9 % (11.5-14.5)
[2020-07-19 08:14] LABS: HEMATOCRIT 31.4 % (37.0-47.0); HEMOGLOBIN 9.6 g/dl (12.5-16.0); MEAN CORPUSCULAR HEMOGLOBIN 28 pg (27.0-31.0)
[2020-07-19 11:36] VITALS: BP 155/68; PULSE 83; TEMP 98.8
[2020-07-19 16:01] VITALS: BP 170/72; PULSE 87; TEMP 98.1
--- NOTE | 2020-07-19 16:16 | NUR ---
Under Presser attended clinical rounds with the team. PT/OT ordered and plan is for discharge home tomorrow. RONEL contacted RONEL Gibbons at [facility] who advised patient has [facility] as well as private duty services through [facility]. Edwige states patient has a lot of support at home. Edwige does not have a copy of patient's Advance Directives. RONEL contacted Britney at [facility] who confirmed they see patient for PT. RONEL faxed clinical updates. RONEL attempted to contacted patient's , Ricky at ph#[phone] and left a message. RONEL tried to contact Ricky at ph#[phone] but the line was busy. RONEL will continue to follow.
--- NOTE | 2020-07-19 19:34 | NUR ---
patient alert and oriented to self and location. complain of tenderness on back wounds. q2h turn, patient refused this am, provided patient with education on the importance of rotating body position. Patient eventually aqree to turns. Dressing on back and great toes ulcer, and lower back skin tear changed. patient resting in bed. attempt to call patient's back to give update after he try to reach RN , left voicemail.
[2020-07-19 21:46] VITALS: BP 154/71; PULSE 90; TEMP 97.9
[2020-07-20] VITALS (7 sets, daily range): BP systolic 152–178; BP diastolic 70–91; PULSE 66–94; TEMP 97.2–98.8
--- NOTE | 2020-07-20 01:59 | NUR ---
Patient sitting up in bed upon starting of shift. Dinner tray was on the table and patient requesting assistance for feeding her. Assisted patient with dinner. Patient ate 25% of dinner. Patient on room air. Denies SOB or dyspnea at this time. Denies any pain or discomfort. All sheduled meds given per AUG. Brief dry and clean. Suprapubic catheter site C/D/I. Draining clear yellow urine. Repositioned patient after finish dinner. Made phone call to patient's and provided update on patient. Patient expressed appreciation to the nursing care provided and denies any needs at this time. Will continue to monitor.
--- NOTE | 2020-07-20 06:13 | NUR ---
Patient appears confused this morning upon wake up. Patient told this nurse to go upstair to the kitchen and turn on the light for her. When this nurse asked her where is she right now, she said,"home." Re-oriented patient to the room. Patient reports feeling tired this morning. Denies pain or discomfort. Repositioned patient frequently throughout the night. Right hand IV site got infiltrated. Removed IV and applied ice pack on the right hand. 22G IV started to right side of wrist by MARIA D Vázquez. Will give report to day shift nurse.
[2020-07-20 06:57] LABS: MEAN CELL VOLUME 92 fl (80.0-100.0); MEAN CORPUSCULAR HGB CONC 30 g/dl (33.0-37.0); MEAN PLATELET VOLUME 11.5 fl (7.4-10.4); PLATELET COUNT 145 K/mm3 (130-400); RED BLOOD COUNT 3.33 M/mm3 (4.10-5.30); REDCELL DISTRIBUTION WIDTH-CV 18.5 % (11.5-14.5)
[2020-07-20 06:58] LABS: HEMATOCRIT 30.6 % (37.0-47.0); HEMOGLOBIN 9.3 g/dl (12.5-16.0); MEAN CORPUSCULAR HEMOGLOBIN 28 pg (27.0-31.0)
[2020-07-20 07:06] LABS: CALCIUM 8.7 mg/dL (8.4-10.2); CREATININE, serum 0.42 (0.52-1.25); POTASSIUM 4.2 mmol/L (3.4-5.0)
--- NOTE | 2020-07-20 08:00 | NUR ---
PT VERY PLEASANT, AOX4, COUGH IS VERY WEAK AND NONPRODUCTIVE, PT EAGER FOR DISCHARGE, MEDICATIONS GIVEN CRUSHED IN PUDDING BUT PT STATED SHE NORMALLY TAKES THEM WHOLE WITH WATER, REFUSED COLACE, VITALS REVIEWED, BP ELEVATED, CALLED AND CALL TRANSFERRED TO PT, TECH HELPED HOLD PHONE FOR PT AND FED HER BREAKFAST, SCAB ON BOTTOM OF L HEEL, R HEEL INTACT, BLE EDEMA, PT REPOSITIONED IN BED, DENIES PAIN, NO OTHER NEEDS.
[2020-07-20 08:05] LABS: BAND 1 % (0-10); BASOPHIL 2 % (0-2); EOSINOPHIL 4 % (0-4); LYMPHOCYTE 13 % (20.0-51.0); MYELOCYTE 1 % (0-0); NEUTROPHILS 75 % (42.0-75.2)
[2020-07-20 08:06] LABS: PLATELET ESTIMATE NORMAL (NORMAL)
[2020-07-20 08:11] LABS: HYPOCHROMIA 2+
[2020-07-20 08:12] LABS: ANISOCYTOSIS 2+
--- NOTE | 2020-07-20 10:13 | NUR ---
ATTEMPTED TO CALL CONSULT TO INFECTIOUS DISEASE, PHYSICIAN DID NOT ANSWER.
--- NOTE | 2020-07-20 11:00 | NUR ---
pt moved rooms, dressing changed on coccyx, aquacell and allevin dressing used. collected urine specimen, pt repositioned in bed. turned on tv for pt, no other needs at this time.
--- NOTE | 2020-07-20 12:39 | NUR ---
Gate Watchman attended clinical rounds with the team and patient is now a PUI for COVID. RONEL updated Britney at [facility] and will continue to follow.
--- NOTE | 2020-07-20 12:42 | NUR ---
PT REPOSITIONED IN BED AND GAVE PT DRINK OF WATER PER PT REQUEST
--- NOTE | 2020-07-20 13:44 | NUR ---
SPEECH THERAPIST NOTIFIED ME OF PT INC CONFUSION. PT THOUGHT WAS IN THE BED WITH HER, PT ANSWERS SOMETIMES NOT APPROPRIATE FOR THE QUESTION, THIS IS A CHANGE FROM THIS MORNING. I NOTIFIED CHARLOTTE GARCÍA AND DR. ARIAS AND THEY SAID TO WATCH IT FOR NOW AND ANY CHANGES.
--- NOTE | 2020-07-20 15:16 | NUR ---
ATTEMPTED TO CALL PT FOR AN UPDATE BUT JENNIFER'S LINE SAID BUSY.
--- NOTE | 2020-07-20 18:09 | NUR ---
PT TEARFUL EARLIER IN DAY WORRIED ABOUT GETTING COVID, REASSURED HER, PT ALSO WOULD LIKE TO BE CHECKED ON Q1H DUE TO NOT BEING ABLE TO USE CALL LIGHT, NO OTHER SOFT TOUCH CALL LIGHTS ON FLOOR AT THIS TIME. PT HAS PERSONAL PHONE WITH VOICE ACTIVATION SET UP IN ROOM, ATTEMPTED TO UPDATE BUT PHONE LINE RANG BUSY, CHANGED DRESSING ON PT SACRAL AREA, PT PLEASANTLY CONFUSED, ON 2L NC AT THIS TIME, PT HAD FULL BED BATH AND SHEET CHANGE, PT REPOSITIONED Q2H, NO OTHER NEEDS.
[2020-07-21 00:41] VITALS: BP 160/68; PULSE 63; TEMP 98.5
--- NOTE | 2020-07-21 01:25 | NUR ---
Patient sitting up in bed upon shift start. Patient appears very weak. Patient states she is feeling very weak and tired. Voice soft and weak. Assisted patient with feeding dinner. All scheduled meds given per AUG. Patient currently on 2L oxygen via NC. SOB noted upon talking. Patient denies any pain or discomfort at this time. Due to patient unable to press call light, leave the door half open, and checked on patient every hour to make sure all the needs are met.
[2020-07-21 03:25] VITALS: BP 152/66; PULSE 66; TEMP 97.8
--- NOTE | 2020-07-21 04:14 | NUR ---
Patient reports she was having hallucinations over the night. Patient states she is hearing loud musics. Breathing slighyly labored and SOB noted throughout the night. Left door 2 feets open and frequently checked on patient every hour due to unable use call light.
--- NOTE | 2020-07-21 06:45 | NUR ---
LAB IS CURRENTLY AT BEDSIDE. THEY WERE UNABLE TO DRAW LABS, THIS RN ATTEMPTED, AND WAS UNSUCCESSFUL. PT WOULD BE A GOOD CANDIDATE FOR A CENTRAL LINE GIVEN THE ANTIBIOTIC REQUIREMENT AND LAB DRAW DIFFICULTIES. PT DENIES ANY CONCERNS AT THIS TIME WILL RETURN FOR ASSESSMENT. NO OTHER CONCERNS AT THIS TIME.
[2020-07-21 07:54] LABS: MEAN CELL VOLUME 91 fl (80.0-100.0); MEAN CORPUSCULAR HGB CONC 31 g/dl (33.0-37.0); MEAN PLATELET VOLUME 11.2 fl (7.4-10.4); PLATELET COUNT 156 K/mm3 (130-400); RED BLOOD COUNT 3.38 M/mm3 (4.10-5.30)
[2020-07-21 08:05] LABS: CALCIUM 8.8 mg/dL (8.4-10.2); CREATININE, serum 0.44 (0.52-1.25); POTASSIUM 4.4 mmol/L (3.4-5.0)
[2020-07-21 08:19] VITALS: BP 160/79; PULSE 61; TEMP 94.5; TEMP 97.3
[2020-07-21 08:32] LABS: HEMATOCRIT 30.7 % (37.0-47.0); HEMOGLOBIN 9.5 g/dl (12.5-16.0); MEAN CORPUSCULAR HEMOGLOBIN 28 pg (27.0-31.0)
[2020-07-21 11:01] LABS: EOSINOPHIL 1 % (0-4); LYMPHOCYTE 8 % (20.0-51.0); MYELOCYTE 1 % (0-0); NEUTROPHILS 85 % (42.0-75.2)
[2020-07-21 11:02] LABS: ANISOCYTOSIS 1+; HYPOCHROMIA 2+; PLATELET ESTIMATE NORMAL (NORMAL)
[2020-07-21 15:28] VITALS: BP 163/61; PULSE 63; TEMP 97.5
[2020-07-21 16:47] VITALS: BP 173/67; PULSE 72; TEMP 97.4
--- NOTE | 2020-07-21 18:45 | NUR ---
PT HAD UNEVENTFUL DAY. SHE WAS DROWSY FOR MOST OF THE DAY. PICC LINE WAS PLACED, AND PT IS NOW NPO. ST WILL CONTINUE TO ASSESS DAILY UNTIL SUNDAY. JENNIFER, THE PATIENTS WILL BE IN TOMORROW. NO FURTHER CONCERNS. REPORT GIVEN TO MARIA D SHIPLEY
[2020-07-21 20:42] VITALS: BP 145/89; PULSE 74; TEMP 97.1
--- NOTE | 2020-07-21 23:36 | NUR ---
Patient laying in bed and resting upon shift start. Patient denies any pain or discomfort. Breathing even and unlabored. Currently on oxygen 1.5 L via NC. No s/s of respiratory distress noted at this time. Suprapubic catheter in place and draining clear yellow urine. All scheduled meds given per AUG. Patient was eager to learn about how to make her lung get better and stronger. Recommened deep breathing technique and benefit of using incentive spirometer. Called CHARLOTTE Quach for order of Incentive Spirometer. Encouraged patient to use call button when she needs anything. Patient verbalized understanding. Repositioned patient at this time. Patient denies any needs at this time.
[2020-07-22 00:37] VITALS: BP 128/52; PULSE 63; TEMP 97.1
--- NOTE | 2020-07-22 06:30 | NUR ---
PT REMAINS IN ROOM AT THIS TIME ON ICE. REPORT FROM MARIA D CHENEY.
--- NOTE | 2020-07-22 10:12 | NUR ---
Call placed [facility]. They have not been able to contact family yet. They will be doing so in the next hour or so. Patient remains in room with ice on body/eyes. Reference # [id number]. Updated nurse on the floor
--- NOTE | 2020-07-22 14:45 | NUR ---
Call received from [facility] [employer] called and stated patient is not a candidate for donation. Patient is to be released to Home. [facility] made aware of patient being ready for pick pulling machine operator
--- NOTE | 2020-07-22 15:18 | NUR ---
PT HAS BEEN PICKED UP BY HOME.
--- NOTE | 2020-07-22 16:04 | NUR ---
Late entry: Received phone call from Telemetry, reporting patient's HR dropping down to 27 at 02:24 am. This RN and MARIA D Bernard went in the room immediately, noticed patient has agonal breathing, pupils dialating, pulses weak to palpate. Checked VS- SPO2 75-77% on 6L via NC, BP 70/40, HR fluctuating from 30-70, RR 10. Called RT, Hospitalist RAHEL Quach, and rooming house operator to come and asess patient at 02:25 am. Hospitalist RAHEL Quach, came and assessed patient around 02:28 am. Ordered Recieved from RAHEL Quach to increae oxygen to 15L via oxymask, give IVF bolus. Due to unable to reach patient's spouse to update patient's condition, accessed patient's own cell phone on the table to call patient's spouse. RAHEL uQach informed patient's spouse that patient is actively dying and asked him to come and vist. Patient's condition changed rapidly. Patient has no breathing, no HR on auscultation with stethoscope for full min, no palpable pulses present at 02:57 am. Patient pronounced for by RAHEL Quach at 02:57 am. Post-morterm care provided. Patient's arrived around 03:15 am.
== END 2020-07-22 15:00 | disposition expired | DRG 698 ==
LOC: COL.ER 13:14 → MEDICAL 16:37
PROVIDERS: Family Medicine; Nurse Practitioner Family; Physician Assistant; ADMIT Family Medicine
PROC: 02HV33Z Insertion of Infusion Device into Superior Vena Cava, Percutaneous Approach (ICD-10-PCS; principal; 2020-07-22)
DX: T83.518A Infection and inflammatory reaction due to other urinary catheter, initial encounter (principal); L89.154 Pressure ulcer of sacral region, stage 4; G82.50 Quadriplegia, unspecified; J18.9 Pneumonia, unspecified organism; J96.01 Acute respiratory failure with hypoxia; Y84.9 Medical procedure, unspecified as the cause of abnormal reaction of the patient, or of later complication, without mention of misadventure at the time of the procedure; I95.9 Hypotension, unspecified; D64.9 Anemia, unspecified; Z90.710 Acquired absence of both cervix and uterus; Z20.828 Contact with and (suspected) exposure to other viral communicable diseases; Z66 Do not resuscitate; D72.829 Elevated white blood cell count, unspecified; B96.5 Pseudomonas (aeruginosa) (mallei) (pseudomallei) as the cause of diseases classified elsewhere; B95.2 Enterococcus as the cause of diseases classified elsewhere
CPT/HCPCS: 99222-AI; 99232-AI; 99233-AI; 99239; A9284; C1751; C1892; J0360; J0692; J0696; J1650; J7030; J7042; J7120